=== PATIENT | male | born 1950 | race Two or more races ===

== ENCOUNTER 2021-01-22 03:11 | Emergency (ER) | payer OTHER ==
[~2021-01-22] VITALS: Ht 172.7 cm; Wt 131.5 kg
[2021-01-22] MEDS ORDERED: ONDANSETRON ODT4 MG PO (15:02)
[2021-01-22] MEDS ORDERED: ATIVAN1 M1 PO (15:02)
[2021-01-22] MEDS ORDERED: PEPCID AC20 MG PO (15:02)
== END 2021-01-22 16:23 ==
LOC: ER 03:11
DX: F19.20 Other psychoactive substance dependence, uncomplicated (principal); F41.8 Other specified anxiety disorders; Z78.1 Physical restraint status

== ENCOUNTER 2021-08-09 10:57 | Outpatient (CLI) | payer OTHER ==
[~2021-08-09 10:57] MED LIST: ATIVAN1 M1 PO; ONDANSETRON ODT4 MG PO; PEPCID AC20 MG PO
== END 2021-08-09 11:19 | disposition home or self-care (01) ==
LOC: SONOGRAMA 10:57
PROVIDERS: ATTEND Pathology Anatomic Pathology
DX: E04.2 Nontoxic multinodular goiter (principal)